=== PATIENT | female | born 1985 | race Caucasian/White ===

== ENCOUNTER 2022-05-11 10:36 | Emergency (ER) | payer OTHER, SELFPAY ==
[2022-05-11 10:50] VITALS: BP 121/89; PULSE 94; RESP 18; TEMP 36.8; O2SAT 94
[2022-05-11 10:57] VITALS: PULSE 86; RESP 16; O2SAT 96
--- NOTE | 2022-05-11 10:58 | ED.URI ---
HPI - URI/Sore Throat General Chief Complaint: Upper Respiratory Infection Stated Complaint: trouble breathing/cough/fatigue Time Seen by Provider: 05/11/22 10:45 Source: patient Mode of arrival: ambulatory Limitations: no limitations History of Present Illness HPI Narrative: this is a 36-year-old female with no significant past medical history except for depression, presents with a 2 day history of cough and congestion with some audible wheezing, no history of asthma former smoker with no fever chills no nausea vomiting no chest pain or pressure. MD elicited complaint: cough and nasal congestion Onset (ago): day(s) Related Data Home Medications Medication Instructions Recorded Confirmed fluoxetine 20 mg capsule (Prozac) 20 mg PO DAILY 05/11/22 05/11/22 medroxyprogesterone 150 mg/mL 150 mg IM [id number] 05/11/22 05/11/22 intramuscular suspension Allergies Allergy/AdvReac Type Severity Reaction Status Date / Time Penicillins Allergy Rash Verified 05/11/22 11:02 Sulfa (Sulfonamide Allergy Rash Verified 05/11/22 11:02 Antibiotics) Review of Systems Review of Systems: All systems reviewed & are unremarkable except as noted in HPI and below PMFSH Past Medical History Medical History Depression Exam Const: General: healthy appearing and no acute distress Nutritional Appearance: well nourished Limitations: no limitations HENMT: Head: normal to inspection Face/Nose/Sinus: Normal external nose present Face and sinus: normal facial exam Mouth: Yes Normal oral and palatal mucosa present Eyes: Conjunctivae: conjunctivae normal Pupils: Equal, round and reactive pupils present EOM: EOMs intact bilaterally Neck: Neck: normal visual inspection, no lymphadenopathy and no meningeal signs Chest: Chest palpation & inspection: normal inspection of the chest Resp: Effort & Inspection: normal respiratory effort Auscultation: wheezes Cardio: Rate: regular rate Rhythm: regular rhythm GI: GI Palp: Yes Soft to palpation Auscultation: normal bowel sounds : General: Yes bladder normal to palpation Skin: General skin exam: normal color Rashes: no rashes Wounds: no wounds Neuro: General: patient oriented x3, moves all extremities, no meningeal signs and no focal motor deficits Psych: Mental Status: mental status grossly normal Affect: normal affect Course Course Emergency Course: patient received DuoNebs and IM Solu-Medrol and COVID/influenza/ RSV and strep were reviewed with patient. Vital Signs Vital signs: Vital Signs Temperature 36.8 C 05/11/22 10:50 Pulse Rate 94 05/11/22 10:50 Respiratory Rate 18 05/11/22 10:50 Blood Pressure 121/89 05/11/22 10:50 Pulse Oximetry 94 05/11/22 10:50 Oxygen Delivery Room Air 05/11/22 10:50 Temperature 36.8 C 05/11/22 10:50 Pulse Rate 94 05/11/22 10:50 Respiratory Rate 18 05/11/22 10:50 Blood Pressure 121/89 05/11/22 10:50 Pulse Oximetry 94 05/11/22 10:50 Oxygen Delivery Room Air 05/11/22 10:57 MDM - URI/Sore Throat Lab Data Labs: Lab Results 05/11/22 Range/Units 10:45 Influenza A (RT-PCR) Pending Influenza B (RT-PCR) Pending RSV (RT-PCR) Pending SARS-CoV-2 RNA (RT-PCR) Pending Critical Care Time Critical Care Time Critical Care Time: No Discharge Plan Discharge Clinical Impression: Upper respiratory infection Qualifiers: URI type: unspecified URI Qualified Code(s): J06.9 - Acute upper respiratory infection, unspecified Patient Disposition: Home, Self-Care Condition: Stable Instructions: Antibiotic Form, Upper Respiratory Infection (ED) Additional Instructions: advised to take medicine as prescribed and if symptoms persist or worsen should follow-up with primary care physician. Prescriptions: New albuterol sulfate 90 mcg/actuation HFA aerosol inhaler 2 puff inhalation QID PRN (Reason: shortness o
[2022-05-11] MEDS: IPRATROPIUM 0.5 MG/ALBUTEROL SULFATE 2.5 MG AMPUL.NEB 3 ML INHALATION (10:59)
[2022-05-11 11:06] VITALS: PULSE 87; RESP 16
--- NOTE | 2022-05-11 11:07 | PC.NURSE ---
Respiratory Therapist in room with patient administering breathing treatment.
[2022-05-11] MEDS: methylPREDNISolone ACETATE 40 MG/ML VIAL 80 MG IM (11:14)
[2022-05-11 11:17] LABS: Strep Group A RT-PCR Negative (Negative)
[2022-05-11 11:30] LABS: Influenza A QL RT-PCR Negative (Negative); Influenza B QL RT-PCR Negative (Negative); RSV RNA, RT-PCR Negative (Negative); SARS-CoV-2 RNA PCR Negative (Negative)
[2022-05-11 11:51] VITALS: BP 125/86; PULSE 106; RESP 20; TEMP 36.4; O2SAT 96
--- NOTE | 2022-05-11 12:11 | PC.NURSE ---
On 05/11/22, the student, [ yeny wise], provided care and completed [facility] documentation on this patient. I have reviewed the student's documentation and agree with the findings.
== END 2022-05-11 11:51 | disposition home or self-care (01) ==
PROVIDERS: Emergency Provider Emergency Medicine; PCP Family Medicine
DX: J06.9 Acute upper respiratory infection, unspecified (principal); Z20.822 Contact with and (suspected) exposure to COVID-19
CPT/HCPCS: 87637; 87651; 94640; 96372; 99283; J1030

== ENCOUNTER 2022-10-07 19:31 | Emergency (ER) | payer OTHER, SELFPAY ==
--- NOTE | ~2022-10-07 | CT_ITS ---
EXAMINATION: CT abdomen pelvis wo con DATE: 10/07/2022 20:50 INDICATION: Dx UTI Friday; LLQ and left flank pain over 1 week. TECHNIQUE: Computed tomography (CT) of the abdomen and pelvis was performed without intravenous contr ast. Automated exposure control and iterative reconstruction technique were employed. The dose-length product was 362.64 mGy-cm. COMPARISON: None. FINDINGS: Lower thorax: Unremarkable Liver: Mildly enlarged. Biliary/Gallbladder: Gallbladder is absent. No bile duct dilation. Pancreas: No mass or duct dilation. Spleen: Normal. Adrenals:No mass. Kidneys: No mass, stone, or hydronephrosis. GI tract: No small or large bowel dilation. Normal appendix. Mesentery/Peritoneum: No ascites, mass, or free air. Retroperitoneum: No mass. Pelvis: Mild bladder wall thickening in the partially decompressed urinary bladder. Remaining pelvic organs are within normal limits. Soft Tissues: Small fat-containing uncomplicated umbilical hernia. Bones: No acute osseous finding. IMPRESSION: Mild hepatomegaly. Status post cholecystectomy. Mild bladder wall thickening, may be secondary to cys titis or incomplete distention. Correlate with urinalysis. Reviewed, dictated and finalized at location K. IMPRESSION: Mild hepatomegaly. Status post cholecystectomy. Mild bladder wall thickening, m ay be secondary to cystitis or incomplete distention. Correlate with urinalysis .
[2022-10-07 19:35] VITALS: BP 118/84; PULSE 88; RESP 18; TEMP 36.3; O2SAT 95
--- NOTE | 2022-10-07 19:35 | ED.GENADULT ---
HPI - General Adult General Chief complaint: Abdominal Pain Stated complaint: UTI Time Seen by Provider: 10/07/22 19:35 History of Present Illness HPI narrative: The patient is a 37-year-old woman who has had symptoms for the last 9 days: Bilateral flank pain, left more than right lower quadrant abdominal discomfort, left more than right lower back pain, associated initially with dysuria described as sharp burning pain. She went to her primary care provider's office, urinalysis was performed which was negative and HCG was negative. Urine culture showed more than 100,000 staph species. She was placed on cefuroxime which she has started 4 days ago. She continues to have symptoms. Her dysuria now is more pressure rather than sharp pain. She does feel weak and fatigued and tired. Does have nausea but no vomiting. Has urinary frequency and urgency. Did have a fever 100.2? today which prompted her to come to the ER, treated with Tylenol at home. No cough or URI symptoms. No chills or diaphoresis. No diarrhea or constipation. Past medical history is notable for depression. No abdominal operations Related Data Home Medications Medication Instructions Recorded Confirmed fluoxetine 20 mg capsule (Prozac) 20 mg PO DAILY 05/11/22 10/07/22 medroxyprogesterone 150 mg/mL 150 mg IM [id number] 05/11/22 10/07/22 intramuscular suspension cefuroxime axetil 500 mg tablet 500 mg PO BID 10/07/22 10/07/22 loratadine 10 mg tablet 10 mg PO DAILY 10/07/22 10/07/22 Allergies Allergy/AdvReac Type Severity Reaction Status Date / Time Penicillins Allergy Rash Verified 10/07/22 19:59 Sulfa (Sulfonamide Allergy Rash Verified 10/07/22 19:59 Antibiotics) Review of Systems Review of Systems: All systems reviewed & are unremarkable except as noted in HPI and below Constitutional: Constitutional: Reports as per HPI, Reports no additional constitutional complaints, Denies chills, Denies excessive sweating, Reports fatigue, Reports fever(s), Denies headache(s) and Reports weakness Eyes: Eyes: Reports as per HPI, Reports no additional eye complaints, Denies change in vision and Denies photophobia ENT: Reports system reviewed and no additional complaints, except as documented, Reports as per HPI, Denies dysphagia, Denies vertigo, Denies dizziness, Denies headache(s), Denies lip swelling, Denies nasal congestion, Denies sore throat, Denies throat swelling and Denies tongue swelling Cardiovascular: Cardiovascular: Reports as per HPI, Reports no additional cardiovascular complaints, Denies chest pain, Denies syncope, Denies rapid heart rate and Denies dyspnea Respiratory: Respiratory: Reports as per HPI, Reports no additional respiratory complaints, Denies chest congestion, Denies cough, Denies dyspnea and Denies wheezing Gastrointestinal: Gastrointestinal: Reports as per HPI, Reports no additional gastrointestinal complaints, Reports abdominal pain, Denies constipation, Denies dysphagia, Denies diarrhea, Reports nausea and Denies vomiting Genitourinary: Genitourinary: Reports as per HPI, Denies hematuria, Denies urinary frequency, Reports nocturia, Denies dysuria, Reports pelvic pain, Reports flank pain, Denies urinary incontinence, Reports urinary urgency and Denies vaginal discharge Musculoskeletal: Musculoskeletal: Reports no additional musculoskeletal complaints, Reports back pain, Reports myalgias, Denies arthralgias, Denies joint swelling and Denies numbness Integumentary/Breasts: Skin/Breast: Reports system reviewed and no additional complaints, except as docu, Denies pruritus, Denies erythema, Denies rash and Denies skin ulcer Neurologic: Reports system reviewed and no additional complaints, except as documented, Reports as per HPI, Denies confusion, Denies vertigo, Denies dizziness, Denies syncope, Denies headache(s), Denies focal weakness, Denies numbness and Denies weakness Psychiatric: Psychiatric: Reports as per HPI, Denies anxiety, Denies conf
[2022-10-07 20:00] VITALS: BP 118/84; PULSE 88; RESP 18; TEMP 36.3; O2SAT 95
[2022-10-07 20:21] LABS: Appearance Urine Clear (Clear); Bilirubin Urine Negative (Negative); Blood Urine Trace-Intact (Negative); Color Urine Light Yellow (Yellow); Glucose Urine UA Negative (Negative); Ketones Urine Negative (Negative); Leukocyte Esterase Ur Negative LEU/UL (Negative); Nitrate Urine Negative (Negative); Protein Urine Negative (Negative); Urobilinogen Urine 0.2 mg/dL (0.2-1.0)
[2022-10-07 20:28] LABS: Add Urine Microscopic? YES; Bacteria Urine None seen /hpf; RBC Urine 0-2 /hpf (0-2); Squamous Epithelial Cell Urine None seen /hpf (Few); WBC Urine 0-3 /hpf (0-3)
[2022-10-07] MEDS: SODIUM CHLORIDE 0.9% IV 1,000 ML 999 ML IV CONT (20:36)
[2022-10-07] MEDS: KETOROLAC 30 MG/ML VIAL (*BKC) IV PUSH (20:36)
[2022-10-07 20:37] LABS: Pregnancy On Board Control Positive; Urine Pregnancy Test Negative
[2022-10-07] MEDS: ONDANSETRON INJ 4 MG/2 ML VIAL IV PUSH (20:37)
[2022-10-07 20:57] LABS: Basophils Absolute Auto 0.04 K/mm3 (0.00-0.10); Basophils Percent Auto 0.8 % (0.0-1.0); Eosinophils Absolute Auto 0.47 K/mm3 (0.02-0.50); Eosinophils Percent Auto 9.4 % (1.0-6.0); Hemoglobin 13.7 g/dL (12.0-15.0); Immature Granulocyte Absolute 0.01 K/mm3 (0.00-0.00); Immature Granulocyte Percent A 0.2 % (0.0-0.0); Lymphocytes Absolute Auto 1.17 K/mm3 (1.10-4.50); Lymphocytes Percent Auto 23.3 % (18.0-42.0); Mean Corpuscular HGB Conc 33.4 g/dL (32.0-36.0); Mean Corpuscular Hemoglobin 34.5 pg (27.0-31.0); Mean Corpuscular Volume 103.3 fL (78.0-102.0); Mean Platelet Volume 9.4 fl (9.2-11.8); Monocytes Absolute Auto 0.31 K/mm3 (0.10-0.90); Monocytes Percent Auto 6.2 % (2.0-11.0); Neutrophils Percent Auto 60.1 % (50.0-70.0); Platelet Count Result 180 K/mm3 (150-420); Red Blood Count 3.97 M/mm3 (4.20-5.40); Red Cell Distribution Width 12.2 % (11.6-14.4)
[2022-10-07 21:26] LABS: Alanine Aminotransferase 19 U/L (14-59); Albumin Level 3.7 g/dL (3.4-5.0); Alkaline Phosphatase 68 U/L (46-116); Amylase 47 U/L (25-115); Anion Gap 12 mmol/L (8-16); Aspartate Amino Transferase 13 U/L (15-37); Bilirubin,Total 0.3 mg/dL (0.00-1.00); Blood Urea Nitrogen 12 mg/dL (7-18); Calcium 8.6 mg/dL (8.5-10.1); Carbon Dioxide 24 mmol/L (21-32); Chloride 104 mmol/L (98-108); Estimated CRCL calculation 82 ml/min; Estimated Glomerular Filt Rate > 60; Glucose 92 mg/dL (70-99); Lipase 28 U/L (16-77); Osmolality Calculated 289 mOsm/kg (285-295); Potassium 3.5 mmol/L (3.5-5.1); Sodium 140 mmol/L (136-145)
[2022-10-07 22:23] VITALS: BP 112/70; PULSE 74; RESP 17; TEMP 36.3; O2SAT 96
== END 2022-10-07 22:25 | disposition home or self-care (01) ==
PROVIDERS: Emergency Provider Emergency Medicine; PCP Family Medicine
DX: R10.31 Right lower quadrant pain (principal); R10.32 Left lower quadrant pain; M54.50 Low back pain, unspecified
CPT/HCPCS: 36415; 74176; 80053; 81001; 81025; 82150; 83690; 85025; 96361; 96374; 96375; 99284; J1885; J2405; J7030

== ENCOUNTER 2022-10-10 07:54 | Emergency (ER) | payer OTHER, SELFPAY ==
--- NOTE | ~2022-10-10 | XR_ITS ---
EXAMINATION: XR chest 1V portable 10/10/2022 08:21 INDICATION: Shortness of breath and cough PROCEDURE: AP portable chest COMPARISON: No prior studies for comparison. FINDINGS: The lungs are clear. The cardiomediastinal silhouette is within normal limits. There are no pleural effusions. There is no pneumothorax suspected. IMPRESSION: 1: NO ACUTE CARDIOPULMONARY DISEASE. Reviewed, dictated and finalized at location L.
[2022-10-10 07:54] VITALS: BP 112/72; PULSE 78; RESP 20; TEMP 36.2; O2SAT 96
[2022-10-10 08:00] VITALS: O2SAT 96
[2022-10-10] MEDS: methylPREDNISolone SOD SUCC 125 MG VIAL IV PUSH (08:26)
[2022-10-10 08:34] LABS: Basophils Absolute Auto 0.02 K/mm3 (0.00-0.10); Basophils Percent Auto 0.4 % (0.0-1.0); Eosinophils Absolute Auto 0.38 K/mm3 (0.02-0.50); Eosinophils Percent Auto 7.8 % (1.0-6.0); Hematocrit 42.3 % (35.0-49.0); Hemoglobin 13.9 g/dL (12.0-15.0); Immature Granulocyte Absolute 0.02 K/mm3 (0.00-0.00); Immature Granulocyte Percent A 0.4 % (0.0-0.0); Lymphocytes Absolute Auto 0.84 K/mm3 (1.10-4.50); Lymphocytes Percent Auto 17.2 % (18.0-42.0); Mean Corpuscular HGB Conc 32.9 g/dL (32.0-36.0); Mean Corpuscular Hemoglobin 34.4 pg (27.0-31.0); Mean Corpuscular Volume 104.7 fL (78.0-102.0); Mean Platelet Volume 9.5 fl (9.2-11.8); Monocytes Absolute Auto 0.36 K/mm3 (0.10-0.90); Monocytes Percent Auto 7.4 % (2.0-11.0); Neutrophils Absolute Auto 3.3 K/mm3 (1.7-7.2); Neutrophils Percent Auto 66.8 % (50.0-70.0); Platelet Count Result 196 K/mm3 (150-420); Red Blood Count 4.04 M/mm3 (4.20-5.40); Red Cell Distribution Width 12.4 % (11.6-14.4); White Blood Count 4.9 K/mm3 (4.8-10.8)
[2022-10-10] MEDS: IPRATROPIUM 0.5 MG/ALBUTEROL SULFATE 2.5 MG AMPUL.NEB 3 ML INHALATION (08:40)
--- NOTE | 2022-10-10 08:41 | ED.SOB ---
HPI - SOB/Dyspnea General Chief Complaint: Shortness of Breath/Dyspnea Stated Complaint: shortness of breath Time Seen by Provider: 10/10/22 08:01 Source: patient Mode of arrival: ambulatory Limitations: no limitations History of Present Illness HPI Narrative: This is a 37-year-old female with no significant past history recent H being treated for a urinary tract infection, over the last couple of days has been having increased shortness of breath with some wheezing and nonproductive cough with no fever chills no chest pain no abdominal pain no sore throat does have nasal congestion. MD elicited complaint: shortness of breath and cough Timing: constant Severity: moderate Exacerbating factors: nothing Relieving factors: nothing Related Data Home Medications Medication Instructions Recorded Confirmed fluoxetine 20 mg capsule (Prozac) 20 mg PO DAILY 05/11/22 10/10/22 medroxyprogesterone 150 mg/mL 150 mg IM [id number] 05/11/22 10/10/22 intramuscular suspension cefuroxime axetil 500 mg tablet 500 mg PO BID 10/07/22 10/10/22 loratadine 10 mg tablet 10 mg PO DAILY 10/07/22 10/10/22 Allergies Allergy/AdvReac Type Severity Reaction Status Date / Time Penicillins Allergy Rash Verified 10/07/22 19:59 Sulfa (Sulfonamide Allergy Rash Verified 10/07/22 19:59 Antibiotics) Review of Systems Review of Systems: All systems reviewed & are unremarkable except as noted in HPI and below PMFSH Past Medical History Medical History Depression Exam Const: General: healthy appearing and no acute distress Nutritional Appearance: well nourished Orientation/consciousness: patient oriented x3 Limitations: no limitations HENMT: Head: normal to inspection Eyes: Conjunctivae: conjunctivae normal Neck: Neck: normal visual inspection Chest: Chest palpation & inspection: normal inspection of the chest Resp: Effort & Inspection: normal respiratory effort Auscultation: wheezes Cardio: Rate: regular rate Rhythm: regular rhythm GI: GI Palp: Yes Soft to palpation : General: Yes bladder normal to palpation Skin: General skin exam: normal color Rashes: no rashes Wounds: no wounds Neuro: General: patient oriented x3 and moves all extremities Extrem: General: normal to inspection and no clubbing, cyanosis or edema Psych: Mental Status: mental status grossly normal Affect: normal affect Course Course Emergency Course: Chest x-ray performed and shows no acute cardiopulmonary disease, the patient started on DuoNebs, IV Solu-Medrol and RSV COVID and influenza performed labs performed and reviewed with a white count that is within range. Vital Signs Vital signs: Vital Signs Temperature 36.2 C L 10/10/22 07:54 Pulse Rate 78 10/10/22 07:54 Respiratory Rate 20 10/10/22 07:54 Blood Pressure 112/72 10/10/22 07:54 Pulse Oximetry 96 10/10/22 07:54 Oxygen Delivery Room Air 10/10/22 07:54 Temperature 36.2 C L 10/10/22 07:54 Pulse Rate 78 10/10/22 07:54 Respiratory Rate 20 10/10/22 07:54 Blood Pressure 112/72 10/10/22 07:54 Pulse Oximetry 96 10/10/22 08:00 Oxygen Delivery Room Air 10/10/22 08:00 MDM - SOB/Dyspnea Lab Data 10/10/22 08:25 Labs: Lab Results 10/10/22 10/10/22 Range/Units 08:09 08:25 WBC 4.9 (4.8-10.8) K/mm3 RBC 4.04 L (4.20-5.40) M/mm3 Hgb 13.9 (12.0-15.0) g/dL Hct 42.3 (35.0-49.0) % MCV 104.7 H (78.0-102.0) fL MCH 34.4 H (27.0-31.0) pg MCHC 32.9 (32.0-36.0) g/dL RDW 12.4 (11.6-14.4) % Plt Count 196 (150-420) K/mm3 MPV 9.5 (9.2-11.8) fl Immature Gran % (Auto) 0.4 H (0.0-0.0) % Neut % (Auto) 66.8 (50.0-70.0) % Lymph % (Auto) 17.2 L (18.0-42.0) % [place] % (Auto) 7.4 (2.0-11.0) % Eos % (Auto) 7.8 H (1.0-6.0) % Baso % (Auto) 0.4 (0.0-1.0) % Lymph # (Auto) 0.84 L (1.10-4.50) K/mm3 [place] # (Auto) 0.36 (0.10-0.90) K/m
[2022-10-10 08:42] VITALS: PULSE 108; RESP 16; O2SAT 93
[2022-10-10 08:46] LABS: D Dimer 0.39 mg/L (0.19-0.50)
[2022-10-10 08:49] VITALS: PULSE 90; RESP 16
[2022-10-10 08:51] LABS: Base Excess ABG -1.3 mmol/L (0-2); HCO3 ABG 21.8 mmol/L (23-29); Oxygen Content ABG 20.4 %vol (16.0-22.0); Oxygen Saturation ABG 98.2 % (95-97); Oxyhemoglobin 97.4 % (94-100); PCO2 ABG 32.1 mmHg (35-45); PO2 ABG 120.3 mmHg (80-90); Total Hemoglobin 14.8 g/dL (12.0-18.0); pH ABG 7.45 (7.35-7.45)
[2022-10-10 08:52] LABS: Modified Allen's Test Pass; Site Drawn RIGHT RADIAL
[2022-10-10 08:53] LABS: Device OTHER DEVICE
--- NOTE | 2022-10-10 08:53 | PCRCNOTE ---
PT complains of feeling very shaky after treatment.
[2022-10-10 08:54] LABS: Lactic Acid Reflex 1.6 mmol/L (0.4-2.0)
[2022-10-10 08:57] LABS: Alanine Aminotransferase 23 U/L (14-59); Alkaline Phosphatase 72 U/L (46-116); Anion Gap 11 mmol/L (8-16); Aspartate Amino Transferase 20 U/L (15-37); Bilirubin,Total 0.3 mg/dL (0.00-1.00); Blood Urea Nitrogen 9 mg/dL (7-18); Calcium 8.7 mg/dL (8.5-10.1); Carbon Dioxide 26 mmol/L (21-32); Chloride 105 mmol/L (98-108); Estimated CRCL calculation 77 ml/min; Estimated Glomerular Filt Rate > 60; Glucose 96 mg/dL (70-99); Osmolality Calculated 292 mOsm/kg (285-295); Potassium 4.1 mmol/L (3.5-5.1); Sodium 142 mmol/L (136-145); Total Protein 8.4 g/dL (6.4-8.2)
[2022-10-10 09:15] LABS: Influenza A QL RT-PCR Negative (Negative); Influenza B QL RT-PCR Negative (Negative); RSV RNA, RT-PCR Negative (Negative); SARS-CoV-2 RNA PCR Negative (Negative)
[2022-10-10 09:29] VITALS: BP 120/82; PULSE 82; RESP 18; TEMP 37.2; O2SAT 97
[2022-10-10] MEDS: levoFLOXacin 500 MG TABLET PO (09:37)
== END 2022-10-10 09:43 | disposition home or self-care (01) ==
PROVIDERS: Emergency Provider Emergency Medicine; PCP Family Medicine
DX: J06.9 Acute upper respiratory infection, unspecified (principal); Z20.822 Contact with and (suspected) exposure to COVID-19
CPT/HCPCS: 36415; 36600; 71045; 80053; 82805; 83605; 83735; 85025; 85380; 87637; 94640; 99283; A9270; J2930